=== PATIENT | female | born 1995 | race Hispanic/Latino ===

== ENCOUNTER 2024-09-07 14:59 | Emergency (ER) | payer OTHER ==
[~2024-09-07] VITALS: Ht 152.4 cm; Wt 59.0 kg
--- NOTE | 2024-09-07 15:17 | ERN ---
ED Note History of Present Illness Stated Complaint: RASH/BLISTER Chief Complaint: Allergic Reaction Time Seen by MD: 15:07 Dictation: PATIENT IS A 29-YEAR-OLD FEMALE HERE WITH A DIFFUSE MACULAR RASH THAT IS ITCHY, ONSET WAS YESTERDAY. SHE STATES SHE WAS OUTSIDE NO ANGIOEDEMA NO SHORTNESS A BREATH. SHE DENIES ANY HISTORY OF NEW MEDICATIONS STATES SHE TRIED HYDROCORTISONE [id number] THAT DID NOT HELP. Allergies: Coded Allergies: No Known Allergies (Unverified Allergy, Unknown, 09/07/24) Home Meds Active Scripts Methylprednisolone (Medrol) 4 Mg Tab.ds.pk, 1 TAB PO AD for 6 Days, #21 TAB 0 Refills 6 on day 1 then reduce by one tablet daily until gone Prov:ALBERT SHAH SUPERVISOR DECORATING 09/07/24 Diphenhydramine HCl (Benadryl) 50 Mg Cap, 50 MG PO Q6H for itching/rash, #20 CAP 0 Refills Prov:ALBERT SHAH NP 09/07/24 Past Medical History Past Medical History: No Pertinent History Surgical History: None History: Not Applicable LMP: Aug 22, 2024 RN Note Reviewed/Agreed w/[facility]: Yes Review of System Dictation CONSTITUTIONAL: Negative except for HPI HEAD/FACE: Negative except for HPI EENT: Negative except for HPI RESPIRATORY: Negative except for HPI GASTROINTESTINAL/ABDOMINAL: Negative except for HPI GENITOURINARY: Negative except for HPI MUSCULOSKELETAL: Negative except for HPI INTEGUMENTARY: Negative except for HPI pruritic rash arms and chest NEUROLOGICAL/PSYCH: Negative except for HPI HEMATOLOGIC/LYMPHATIC: Negative except for HPI All Systems Negative, Except as noted above. 13 point review of systems assessed and all negative except for above. Initial Vital Sign VS Vital Signs Date Time Temp Pulse Resp B/P (MAP) Pulse Ox O2 Delivery O2 Flow Rate FiO2 09/07/24 15:04 98.6 71 16 127/78 98 Room Air 0 09/07/24 17:43 21 Physical Exam Dictation Vital Signs reviewed General Appearance: Alert, oriented x 3, mild acute distress, well developed, nourished. Head and Face: non-traumatic. Eyes: PERRL, pink conjunctivas, eyelid no trauma, anterior chamber with arcus senilis. Ears: Pinnas intact and no signs of trauma or erythema ear canals clear and no discharge TM no erythema Nose: No discharge, no bleeding. Oropharynx: Mouth normal, tongue pink, pharynx clear,no erythema, tonsils no exudates, no abscesses noted, mucous membrane moist Neck: Supple, non-tender, no thyromegaly, no masses, no JVD, no bruits Breast:Deferred Chest:No tenderness, no crepitus, no paradoxical movement, no retractions Lungs:Clear, well-ventilated, symmetric, no rales, no wheezing, no rhonchi, no stridor, good breath sounds bilaterally Heart: Regular rate, regular rhythm, no murmur, no gallops Vascular: no peripheral edema, Abdomen: Soft, positive bowel sounds, nondistended, no guarding, nontender, no rebound, no masses no hepatomegaly, no splenomegaly, no Juarez's sign, no hernias. Rectal: Deferred Genital: Deferred Neurological: Normal speech, motor function intact, sensory function intact Musculoskeletal: Neck nontender, full range of motion, back nontender, full ra nge of motion, Extremities: nontender, full range of motion Skin: Color pink, d discrete pruritic rash to upper arms chest back. No angioedema no lips Lymphatic: Deferred Results (Laboratory/Radiology) Labs Reviewed?: Yes ED Course ED Course Orders Procedure Category Date Status Time Dexamethasone 4mg/Ml PHA 09/07/24 Complete 1ml Vial (Dexametha 15:30 Diphenhydramine Hcl PHA 09/07/24 Complete (Benadryl Cap) 15:30 Famotidine 20mg Tab PHA 09/07/24 Complete (Pepcid 20mg Tab) 15:30 Current Medications Medications (Trade) Dose Ordered Sig/Layla Route PRN Reason Start Time Stop Time Status Last Admin Dose Admin Dexamethasone Sodium Phosphate (dexaMETHasone 4MG/ML 1ML VIAL) 8 mg ONCE IM 09/07/24 15:30 09/07/24 18:15 DC 09/07/24 15:43 Diphenhydramine HCl (BENAdryl CAP) 50 mg ONCE PO 09/07/24 15:30 09/07/24 18:15 DC 09/07/24 15:43 Famotidine (Pepcid 20mg Tab) 20 mg ONCE PO 09/07/24 15:30 09/07/24 18:15 DC 09/07/24 15:43 Vital Signs Date Time Temp Pulse Resp B/P (MAP) Pulse Ox O2 Delivery O2 Flow Rate FiO2 09/07/24 17:43 98.6 70 16 121/76 98 Room Air* 0 21 09/07/24 15:04 98.6 71 16 127/78 98 Room Air 0 Medical Decision Making [facility] 1755/medical discharge making based on empiric treatment for an acute allergic reaction Patient given Benadryl/Pepcid/Decadron Discharged home to follow up with her doctor with Benadryl DX & DISP Disposition: Discharge Departure Impression: Primary Impression: Acute allergic reaction Condition: Stable Scripts Methylprednisolone (Medrol) 4 Mg Tab.ds.pk 1 TAB PO AD for 6 Days, #21 TAB 0 Refills 6 on day 1 then reduce by one tablet daily until gone Prov: ALBERT SHAH NP 09/07/24 Diphenhydramine HCl (Benadryl) 50 Mg Cap 50 MG PO Q6H for itching/rash, #20 CAP 0 Refills Prov: ALBERT SHAH NP 09/07/24 Additional Instructions: Follow-up with primary care provider in 1 to 2 days. Take medications as directed here in the emergency room. Okay to continue home medications unless otherwise discussed during your visit in the emergency room today. Return to your nearest emergency room if symptoms worsen or if there is no improvement. Call 911 if you need immediate assistance. Take Tylenol or Motrin [id number] as needed and if no contraindications are present. Increase oral hydration. A wound culture or urine culture was ordered here in the em ergency room department please follow-up with primary care provider and advise them to get repeat ports from our facility. If you had any Titi wrap/splints that were applied here, please do not remove them until you see your primary care or specialty. Take Benadryl every 6 hours for three more doses. Take Medrol Dosepak as directed until gone. Follow up with your primary care doctor in 1-2 days or return Time of Disposition: 17:55 I have reviewed the case, and I agree with, Diagnosis and Plan I performed the substantive portion of the visit. I have reviewed and personally made and approve the management plan that is documented in the notes by myself or the EFE. I acknowledge full responsibility for the patient's management plan. ALBERT SHAH NP Sep 07, 2024 15:17 DOMITILA HOSKINS MD Sep 07, 2024 18:49
[2024-09-07] MEDS: DiphenhydrAMINE HCL 25 MG CAPSULE PO SCH (15:43)
[2024-09-07] MEDS: FAMOTIDINE 20MG TAB PO SCH (15:43)
[2024-09-07] MEDS: dexaMETHasone SOD PHOSPHATE 4 MG/ML 1ML VIAL IM SCH (15:43)
[2024-09-07 17:43] VITALS: BP 121/76; PULSE 70; RESP 16; TEMP 98.6; O2SAT 98
--- NOTE | 2024-09-07 17:45 | NUR ---
PT LEFT BEFORE DISCHARGE PAPERWORK. PRESCRIPTIONS WERE PRINTED CALLED [phone] NO ANSWER AND UNABLE TO LEAVE MESSAGE
[2024-09-07] MEDS ORDERED: METH4TAB3 PO (17:56)
[2024-09-07] MEDS ORDERED: DIPH50 PO (17:56)
== END 2024-09-07 18:15 | disposition home or self-care (01) ==
LOC: EDH 14:59
DX: T78.40XA Allergy, unspecified, initial encounter (principal); Z79.899 Other long term (current) drug therapy; X58.XXXA Exposure to other specified factors, initial encounter
CPT/HCPCS: 99283; 96372; J1100; Q0163